=== PATIENT | male | born 1995 | race Caucasian/White ===

== ENCOUNTER 2018-09-19 23:20 | Emergency (ER) | payer OTHER ==
[2018-09-20 00:15] VITALS: BP 140/79; PULSE 85; TEMP 98.6; BMI 31.7
[2018-09-20] MEDS ORDERED: KETOROLAC TROMETHAMINE 60 MG/2 ML VIAL IM ONE (02:13)
--- NOTE | 2018-09-20 02:13 | PDOC ---
History of Present Illness - General Chief Complaint: Pain, Acute Stated Complaint: KNEE INJURY Time Seen by Provider: 09/20/18 02:11 History Source: Patient - History of Present Illness Initial Comments: 09/20/18 02:35 23 year old male c/o right knee pain " felt a pop " while playing basketball. at 4.00 pm, unable to weigth bear since injury. Past History - Past Medical History Allergies/Adverse Reactions: Allergies Allergy/AdvReac Type Severity Reaction Status Date / Time No Known Allergies Allergy Verified 09/20/18 00:15 Home Medications: Ambulatory Orders Ibuprofen 600 mg PO QID PRN #20 tablet 09/20/18 - Suicide/Smoking/Psychosocial Hx Smoking History: Never smoked Have you smoked in the past 12 months: No Information on smoking cessation initiated: No Hx Alcohol Use: No Drug/Substance Use Hx: No Review of Systems - Review of Systems Able to Perform ROS?: Yes Is the patient limited Pakistani proficient: No Constitutional: No: Symptoms Reported, See HPI, Chills, Diaphoresis, Fever, Loss of Appetite, Malaise, Night Sweats, Weakness, Weight Stable, Unintentional Wgt. Loss, Unexplained wgt Loss, Other Musculoskeletal: Yes: Other (right knee pain) *Physical Exam - Vital Signs Last Vital Signs Temp Pulse Resp BP Pulse Ox 98.6 F 85 18 140/79 98 09/19/18 23:20 09/19/18 23:20 09/19/18 23:20 09/19/18 23:20 09/19/18 23:20 - Physical Exam General Appearance: Yes: Appropriately Dressed Extremity: positive: Normal Capillary Refill, Other (right lateral knee pain. unable to weigth bear. able to leg raise) Integumentary: positive: Normal Color, Dry, Warm Neurologic: positive: Fully Oriented, Alert, Normal Mood/Affect ED Treatment Course - RADIOLOGY Radiology Studies Ordered: Category Date Time Status KNEE 2 POS-RIGHT [RAD] Stat Radiology 09/20/18 02:11 Ordered Progress Note - Progress Note Progress Note: A: knee pain P: xray: negative NSAIDs ortho follow up. *DC/Admit/Observation/Transfer Diagnosis at time of Disposition: Knee strain Qualifiers: Encounter type: initial encounter Laterality: right Qualified Code(s): S86.911A - Strain of unspecified muscle(s) and tendon(s) at lower leg level, right leg, initial encounter - Discharge Dispostion Disposition: HOME Condition at time of disposition: Fair - Prescriptions Prescriptions: Ibuprofen 600 mg PO QID PRN #20 tablet PRN Reason: Pain - Referrals Referrals: Keith Urbina [Primary Care Provider] - Ravi Cifuentes DO [Staff Physician] - Call tomorrow - Patient Instructions Printed Discharge Instructions: Knee Sprain Additional Instructions: keep in keep immobilizer use crutches with walking apply ice to the area you may take ibuprofen every 6 hours as needed for pain. follow up an orthopedic doctor as soon as possible.. - Post Discharge Activity Forms/Work/School Notes: Back to Work
[2018-09-20] MEDS ORDERED: KETOROLAC TROMETHAMINE 60 MG/2 ML VIAL ONE (02:15)
--- NOTE | 2018-09-20 02:16 | PDOC ---
*Physical Exam - Vital Signs Last Vital Signs Temp Pulse Resp BP Pulse Ox 98.6 F 85 18 140/79 98 09/19/18 23:20 09/19/18 23:20 09/19/18 23:20 09/19/18 23:20 09/19/18 23:20 Medical Decision Making - Medical Decision Making 09/20/18 02:15 Patient seen by the advanced practice provider under my direct supervision. Ancillary testing reviewed as necessary. I agree with plan as outlined by the advanced practice provider. *DC/Admit/Observation/Transfer Diagnosis at time of Disposition: Knee strain - Discharge Dispostion Condition at time of disposition: Fair - Referrals Referrals: Keith Urbina [Primary Care Provider] - - Patient Instructions - Post Discharge Activity
[2018-09-20] MEDS ORDERED: IBUPROFEN 600 MG TABLET (FP) PO ONE (03:55)
== END 2018-09-20 05:18 | disposition home or self-care (01) ==
LOC: JER 23:20
PROC: 3E0233Z Introduction of Anti-inflammatory into Muscle, Percutaneous Approach (ICD-10-PCS; principal; 2018-09-19)
PROC: 2W3QXYZ Immobilization of Right Lower Leg using Other Device (ICD-10-PCS; 2018-09-19)
DX: S86.811A Strain of other muscle(s) and tendon(s) at lower leg level, right leg, initial encounter (principal); X50.1XXA Overexertion from prolonged static or awkward postures, initial encounter; Y93.67 Activity, basketball; Y92.310 Basketball court as the place of occurrence of the external cause; Y99.8 Other external cause status
CPT/HCPCS: 29530; 73560-TC-RT-FY; 96372; 99281-25

== ENCOUNTER 2019-12-25 16:24 | Emergency (ER) | payer OTHER ==
--- NOTE | 2019-12-25 16:29 | PDOC ---
Rapid Medical Evaluation Time Seen by Provider: 12/25/19 16:27 Medical Evaluation: Allergies Allergy/AdvReac Type Severity Reaction Status Date / Time No Known Allergies Allergy Verified 12/25/19 16:26 12/25/19 16:27 I have performed a brief in-person evaluation of this patient. The patient presents with a chief complaint of: SOB w/ exertion and at rest x 2 months on and off and usually resolves after 30 minutes but lasted for 4 hrs last night. Also w/ vague CP. No med eval for sxs in the past. No known pmhx Pertinent physical exam findings:stable, NAD I have ordered the following:EKG The patient will proceed to the ED for further evaluation. Discharge Disposition - Diagnosis SOB (shortness of breath) - Referrals - Patient Instructions - Post Discharge Activity
[2019-12-25 16:43] VITALS: BMI 33.5
--- NOTE | 2019-12-25 17:35 | PDOC ---
History of Present Illness - General Chief Complaint: Chest Pain Stated Complaint: CHEST TIGHTNESS Time Seen by Provider: 12/25/19 16:27 History Source: Patient Exam Limitations: No Limitations - History of Present Illness Initial Comments: 12/25/19 17:33 HISTORY OF PRESENT ILLNESS: 24-year-old male denies medical history presents emergency department for evaluation of intermittent left-sided chest pain with shortness of breath lasting over the past 3 weeks. Reports the pain comes every night which he describes as a squeezing sensation rated 8/10. Patient denies pain at present. He reports the pain is associated with some shortness of breath and noticed it first while playing basketball but now has presented while at rest. Patient is tried to schedule appoint with his primary doctor but is been unsuccessful. Patient denies recent travel, swelling in the legs, drug or alcohol use. No recent travel or sick contacts. PAST MEDICAL HISTORY: Denies past medical history SURGICAL HISTORY: Denies ALLERGIES: No known drug allergies REVIEW OF SYSTEMS General/Constitutional: Denies fever or chills. Denies weakness, weight change. HEENT: Denies change in vision. Denies ear pain or discharge. Denies sore throat. Cardiovascular: See HPI Respiratory: Denies cough, wheezing, or hemoptysis. Gastrointestinal: Denies nausea, vomiting, diarrhea or constipation. Denies r ectal bleeding. Genitourinary: Denies dysuria, frequency, or change in urination. Musculoskeletal: Denies joint or muscle swelling or pain. Denies neck or back pain. Skin and breasts: Denies rash or easy bruising. Neurologic: Denies headache, vertigo, loss of consciousness, or loss of sensation. Psychiatric: Denies depression or anxiety. Endocrine: Denies increased thirst. Denies abnormal weight change. Hematologic/Lymphatic: Denies anemia, easy bleeding, or history of blood clots. Allergic/Immunologic: Denies hives or skin allergy. Denies latex allergy. PHYSICAL EXAM General Appearance: Well-appearing, appropriately dressed. No apparent distress, no intoxication. HEENT: EOMI, PERRLA, normal ENT inspection, normal voice, TMs normal, pharynx normal. No conjunctival pallor. No photophobia, scleral icterus. Neck: Supple. Trachea midline. No tenderness, rigidity, carotid bruit, stridor, lymphadenopathy, or thyromegaly. Respiratory/Chest: Lungs CTAB. No shortness of breath, chest tenderness, respiratory distress, accessory muscle use. No crackles, rales, rhonchi, stridor, wheezing, dullness Cardiovascular: RRR. S1, S2. No JVD, murmur, bradycardia, tachycardia. Vascular Pulses: Dorsalis-Pedis (R): 2+, Dorsalis-Pedis (L): 2+ Gastrointestinal/Abdominal: Normal bowel sounds. Abdomen soft, non-distended. No tenderness or rebound tenderness. No organomegaly, pulsatile mass, guarding, hernia, hepatomegaly, splenomegaly. Lymphatic: No adenopathy, tenderness. Musculoskeletal/Extremities: Normal inspection. FROM of all extremities, normal capillary refill. Pelvis Stable. No CVA tenderness. No tenderness to extremities, pedal edema, swelling, erythema or deformity. Integumentary: Appropriate color, dry, warm. No cyanosis, erythema, jaundice or rash Neurologic: analytical research chemist II-XII intact. Fully oriented, alert. Appropriate mood/affect. Motor strength 5/5. No appreciable EOM palsy, facial droop or sensory deficit. Past History - Medical History Allergies/Adverse Reactions: Allergies Allergy/AdvReac Type Severity Reaction Status Date / Time No Known Allergies Allergy Verified 12/25/19 16:26 Home Medications: Ambulatory Orders NK [No Known Home Medication] 12/25/19 COPD: No - Immunization History Immunization Up to Date: Yes - Psycho-Social/Smoking History Smoking History: Never smoked Have you smoked in the past 12 months: No - Substance Abuse Hx (Audit-C & DAST Scrn) How often the patient has a drink containing alcohol: Never Score: In Men: 4 or > Positive; In Women: 3 or > Positive: 0 Screen Result (Pos requires Nsg. Audit-10AR): Negative In the last yr the pt used illegal drug/Rx for NonMed reason: No Score: Yes response is considered Positive: 0 Screen Result (Positive result requires Nsg. DAST-10): Negative *Physical Exam - Vital Signs Last Vital Signs Temp Pulse Resp BP Pulse Ox 97.9 F 73 20 141/100 98 12/25/19 16:26 12/25/19 16:26 12/25/19 16:26 12/25/19 16:26 12/25/19 16:54 Heart Score/ECG Review - History History: Slightly suspicious - Electrocardiogram EKG: Normal - Age Age: </= 45 - Risk Factors Based on the list above the patient has:: No risk factors known - Troponin Troponin: </= normal limit - Score Heart Score - Total: 0 ED Treatment Course - LABORATORY CBC & Chemistry Diagram: 12/25/19 18:00 12/25/19 18:00 - ADDITIONAL ORDERS Additional order review: Laboratory Results 12/25/19 12/25/19 12/25/19 18:00 18:00 18:00 Sodium 141 Potassium 3.9 Chloride 104 Carbon Dioxide 30 Anion Gap 7 L BUN 15.0 Creatinine 1.0 Est GFR (CKD-EPI)AfAm 123.27 Est GFR (CKD-EPI)NonAf 106.36 Random Glucose 82 Calcium 9.6 Total Bilirubin 0.6 AST 16 ALT 48 Alkaline Phosphatase 67 Creatine Kinase 100 Troponin I < 0.02 Total Protein 7.8 Albumin 4.6 Urine Color Yellow Urine Appearance Turbid Urine pH >= 9.0 H Ur Specific [place] 1.020 Urine Protein Negative Urine Glucose (UA) Negative Urine Ketones Negative Urine Blood Negative Urine Nitrite Negative Urine Bilirubin Negative Urine Urobilinogen 1.0 Ur Leukocyte Esterase Negative Opiates Screen Negative Methadone Screen Negative Barbiturate Screen Negative Phencyclidine Screen Negative Ur Amphetamines Screen Negative MDMA (Ecstasy) Screen Negative Benzodiazepines Screen Negative Cocaine Screen Negative U Marijuana (THC) Screen Negative 12/25/19 18:00 RBC 5.27 MCV 84.4 MCHC 33.6 RDW 12.9 MPV 8.6 Neutrophils % 53.9 Lymphocytes % 37.8 Monocytes % 7.0 Eosinophils % 0.8 Basophils % 0.5 - RADIOLOGY Radiology Studies Ordered: Category Date Time Status CXR [CHEST PA & LAT] [RAD] Stat Radiology 12/25/19 17:36 Completed Medical Decision Making - Medical Decision Making 12/25/19 17:34 A/P: 24-year-old male with intermittent left-sided chest pain over 3 weeks with accompanying shortness of breath Physical exam is unremarkable As patient has been unsuccessful securing appoint with his primary physician I will do a cardiac work-up with one negative troponin being reassuring that this is not cardiac in nature. Patient is in agreement that if initial testing of cardiac enzymes is unremarkable we will follow-up with his primary doctor. 12/25/19 18:11 EKG sinus rhythm with rate of 76. Normal intervals present. Normal axis. No ischemic changes present. 12/25/19 18:13 Chest x-ray as read by Dr. Bone: The cardiac silhouette is within normal limits in size. The lungs are clear. Mediastinum and visualized ostia structures appear grossly intact. 12/25/19 19:01 Laboratory Tests 12/25/19 12/25/19 12/25/19 18:00 18:00 18:00 WBC 6.6 RBC 5.27 Hgb 15.0 Hct 44.5 MCV 84.4 MCH 28.4 MCHC 33.6 RDW 12.9 Plt Count 272 MPV 8.6 Absolute Neuts (auto) 3.6 Neutrophils % 53.9 Lymphocytes % 37.8 Monocytes % 7.0 Eosinophils % 0.8 Basophils % 0.5 Nucleated RBC % 0 Sodium 141 Potassium 3.9 Chloride 104 Carbon Dioxide 30 Anion Gap 7 L BUN 15.0 Creatinine 1.0 Est GFR (CKD-EPI)AfAm 123.27 Est GFR (CKD-EPI)NonAf 106.36 Random Glucose 82 Calcium 9.6 Total Bilirubin 0.6 AST 16 ALT 48 Alkaline Phosphatase 67 Creatine Kinase 100 Troponin I < 0.02 Total Protein 7.8 Albumin 4.6 Urine Color Yellow Urine Appearance Turbid Urine pH >= 9.0 H Ur Specific [place] 1.020 Urine Protein Negative Urine Glucose (UA) Negative Urine Ketones Negative Urine Blood Negative Urine Nitrite Negative Urine Bilirubin Negative Urine Urobilinogen 1.0 Ur Leukocyte Esterase Negative Opiates Screen Methadone Screen Barbiturate Screen Phencyclidine Screen Ur Amphetamines Screen MDMA (Ecstasy) Screen Benzodiazepines Screen Cocaine Screen U Marijuana (THC) Screen 12/25/19 18:00 WBC RBC Hgb Hct MCV MCH MCHC RDW Plt Count MPV Absolute Neuts (auto) Neutrophils % Lymphocytes % Monocytes % Eosinophils % Basophils % Nucleated RBC % Sodium Potassium Chloride Carbon Dioxide Anion Gap BUN Creatinine Est GFR (CKD-EPI)AfAm Est GFR (CKD-EPI)NonAf Random Glucose Calcium Total Bilirubin AST ALT Alkaline Phosphatase Creatine Kinase Troponin I Total Protein Albumin Urine Color Urine Appearance Urine pH Ur Specific [place] Urine Protein Urine Glucose (UA) Urine Ketones Urine Blood Urine Nitrite Urine Bilirubin Urine Urobilinogen Ur Leukocyte Esterase Opiates Screen Negative Methadone Screen Negative Barbiturate Screen Negative Phencyclidine Screen Negative Ur Amphetamines Screen Negative MDMA (Ecstasy) Screen Negative Benzodiazepines Screen Negative Cocaine Screen Negative U Marijuana (THC) Screen Negative As patient has a normal EKG, normal chest x-ray and normal initial troponin I feel it is safe to discharge home to follow-up with his primary doctor when available. I discussed the physical exam findings, ancillary test results and final diagnoses with the patient. I answered all of the patient's questions. The patient was satisfied with the care received and felt comfortable with the discharge plan and treatment plan. The patient will call their primary care physician within 24 hours to arrange follow-up and will return to the Emergency Department with any new, persistent or worsening symptoms. Portions of this note have been documented using voice recognition software. As a result, errors may occur in the power brake operator process. Effort has been made to correct all grammatical and power brake operator error, but some may have been missed which may produce sporadic inaccurate power brake operator or nonsensical phrases. Discharge - Discharge Information Problems reviewed: Yes Clinical Impression/Diagnosis: Chest pain Qualifiers: Chest pain type: unspecified Qualified Code(s): R07.9 - Chest pain, unspecified Condition: Stable Disposition: HOME - Admission No - Follow up/Referral - Patient Discharge Instructions Patient Printed Discharge Instructions: DI for Chest Pain Additional Instructions: Eat a well-balanced diet. Keep well-hydrated. Your EKG, chest x-ray and initial cardiac laboratory testing are all normal. Your symptoms are likely not due to cardiac or pulmonary concerns. Return to emergency department for any new or worsening symptoms. Thank you very much for choosing us provide your emergent healthcare needs. - Post Discharge Activity
[2019-12-25 18:32] LABS: BASO % 0.5 % (0-2.0); EOS % 0.8 % (0-4.5); HEMATOCRIT 44.5 % (35.4-49); LYMPH % 37.8 % (8-40); MCH 28.4 pg (25.7-33.7); MCHC 33.6 g/dl (32.0-35.9); MEAN CELL VOLUME 84.4 fl (80-96); MEAN PLT VOLUME 8.6 fl (7.5-11.1); NEUT % 53.9 % (42.8-82.8); PLATELET COUNT 272 K/MM3 (134-434); RBC 5.27 M/mm3 (4.00-5.60); RDW 12.9 % (11.9-15.9); WHITE BLOOD COUNT 6.6 K/mm3 (4.0-10.0)
[2019-12-25 18:34] LABS: PH,URINE >= 9.0 (5.0-8.0); URINE APPEARANCE TURBID; URINE BILIRUBIN NEGATIVE (NEGATIVE); URINE COLOR YELLOW; URINE GLUCOSE (UA) NEGATIVE (NEGATIVE); URINE KETONE NEGATIVE (NEGATIVE); URINE LEUK ESTERASE NEGATIVE (NEGATIVE); URINE NITRITE NEGATIVE (NEGATIVE); URINE PROTEIN NEGATIVE (NEGATIVE)
[2019-12-25 18:46] LABS: COCAINE, UR NEGATIVE ng/ml (CUTOFF=300); OPIATES, URI NEGATIVE ng/ml (CUTOFF=300); PHENCYCLIDINE,URINE NEGATIVE ng/ml (CUTOFF=25); URINE BARBITURATES NEGATIVE ng/ml (CUTOFF=200)
[2019-12-25 18:50] LABS: ALBUMIN 4.6 g/dl (3.4-5.0); ALK PHOS 67 U/L (45-117); ANION GAP 7 MMOL/L (8-16); BILIRUBIN,TOTAL 0.6 mg/dL (0.2-1); CALCIUM 9.6 mg/dL (8.5-10.1); CHLORIDE 104 mmol/L (98-107); CO2 30 mmol/L (21-32); GLUCOSE,RANDOM 82 mg/dL (74-106); POTASSIUM 3.9 mmol/L (3.5-5.1); SGOT/AST 16 U/L (15-37); SGPT/ALT 48 U/L (13-61); SODIUM 141 mmol/L (136-145); TOT PROT 7.8 g/dl (6.4-8.2)
[2019-12-25 18:57] LABS: METHADONE, UR NEGATIVE ng/ml (CUTOFF=300); URINE AMPHETAMINES NEGATIVE ng/ml (CUTOFF=500); URINE BENZODIAZEPINES NEGATIVE ng/ml (CUTOFF=200)
[2019-12-25 19:11] VITALS: BP 130/74; PULSE 79; TEMP 98.4
--- NOTE | 2019-12-26 09:07 | EKG ---
Test Reason : Blood Pressure : / mmHG Vent. Rate : 076 BPM Atrial Rate : 076 BPM P-R Int : 154 ms QRS Dur : 096 ms QT Int : 378 ms P-R-T Axes : 054 038 025 degrees QTc Int : 425 ms NORMAL SINUS RHYTHM NORMAL ECG NO PREVIOUS ECGS AVAILABLE Confirmed by Han Alves ([id number]) on 12/26/2019 9:07:27 AM Referred By: Confirmed By:Han Alves
== END 2019-12-25 19:11 | disposition home or self-care (01) ==
LOC: JER 16:24
DX: R07.9 Chest pain, unspecified (principal)
CPT/HCPCS: 36415; 71046-TC-FY; 80053; 80307; 81003; 82550; 84484; 85025; 93005; 93010; 99284-25

== ENCOUNTER 2020-01-20 23:47 | Emergency (ER) | payer OTHER ==
[2020-01-21 00:03] VITALS: BP 137/79; PULSE 76; TEMP 98.3; BMI 33.5
--- NOTE | 2020-01-21 00:12 | PDOC ---
History of Present Illness - General Chief Complaint: Shortness of Breath Stated Complaint: SOB Time Seen by Provider: 01/21/20 00:08 - History of Present Illness Initial Comments: 01/21/20 00:48 HPI 24y/o M no significant medical hx presenting after 15-20 minute episode of SOB a few hours ago. Pt has had this ongoing issue for the last 3 months and has been worked up in this ED 01/13 with no significant findings. Has cardiology referral for Echo which he hast not yet done. Patient denies WINTERS, vision change, palpitations, cough, wheezing, orthopena, PND, leg swelling/pain, N/V, F,C, CP, SOB, urinary complaints, hematuria, BPR, abdominal pain, diarrhea, constipation, lightheadedness, weakness, sensory changes. PMHx: as noted above ROS: as noted SHx: Denies Etoh, IVDA, tobacco use Allergies: NKDA ROS: GENERAL/CONSTITUTIONAL: No fever or chills. No weakness. HEAD, EYES, EARS, NOSE AND THROAT: No change in vision. No ear pain or discharge. No sore throat. CARDIOVASCULAR: No chest pain or shortness of breath RESPIRATORY: No cough, wheezing, or hemoptysis. GASTROINTESTINAL: No nausea, vomiting, diarrhea or constipation. GENITOURINARY: No dysuria, frequency, or change in urination. MUSCULOSKELETAL: No joint or muscle swelling or pain. No neck or back pain. SKIN: No rash NEUROLOGIC: No headache, vertigo, loss of consciousness, or change in strength/sensation. ENDOCRINE: No increased thirst. No abnormal weight change HEMATOLOGIC/LYMPHATIC: No anemia, easy bleeding, or history of blood clots. ALLERGIC/IMMUNOLOGIC: No hives or skin allergy. PE: GENERAL: Awake, alert, and fully oriented, in no acute distress HEAD: No signs of trauma, normocephalic, atraumatic EYES: PERRLA, EOMI, sclera anicteric, conjunctiva clear ENT: Auricles normal inspection, hearing grossly normal, nares patent, oropharynx clear without exudates. Moist mucosa NECK: Normal ROM, supple, no lymphadenopathy, JVD, or masses LUNGS: No distress, speaks full sentences, clear to auscultation bilaterally HEART: Regular rate and rhythm, normal S1 and S2, no murmurs, rubs or gallops, peripheral pulses normal and equal bilaterally. ABDOMEN: Soft, nontender, normoactive bowel sounds. No guarding, no rebound. No masses EXTREMITIES : Normal inspection, Normal range of motion, no edema. No clubbing or cyanosis NEUROLOGICAL: Cranial nerves II through XII grossly intact. Normal speech, normal gait, no focal sensorimotor deficits SKIN: Warm, Dry, normal turgor, no rashes or lesions noted MDM DDx including but not limited to: acs, p.e, arrhythmia, Workup: cbc, cmp, d-dimer, troponin, ekg, cxr. TX: Scores - HEART score 0 -PERC 0 - EKG: normal sinus rhythm, 68 bpm, DE 162ms, QRS 96ms, QTc 425ms ED course labs negative d-dimer <215 pt in no acute distress in ED, reports resolution of symptoms d/c with importance of following up with his director ambulatory stressed. Past History - Medical History Allergies/Adverse Reactions: Allergies Allergy/AdvReac Type Severity Reaction Status Date / Time No Known Allergies Allergy Verified 01/21/20 00:03 Home Medications: Ambulatory Orders NK [No Known Home Medication] 12/25/19 COPD: No - Immunization History Immunization Up to Date: Yes - Psycho-Social/Smoking History Smoking History: Never smoked Have you smoked in the past 12 months: No Information on smoking cessation initiated: No - Substance Abuse Hx (Audit-C & DAST Scrn) How often the patient has a drink containing alcohol: Never Score: In Men: 4 or > Positive; In Women: 3 or > Positive: 0 Screen Result (Pos requires Nsg. Audit-10AR): Negative In the last yr the pt used illegal drug/Rx for NonMed reason: No Score: Yes response is considered Positive: 0 Screen Result (Positive result requires Nsg. DAST-10): Negative *Physical Exam - Vital Signs Last Vital Signs Temp Pulse Resp BP Pulse Ox 98.3 F 76 20 137/79 99 01/20/20 23:58 01/20/20 23:58 01/20/20 23:58 01/20/20 23:58 01/20/20 23:58 ED Treatment Course - LABORATORY CBC & Chemistry Diagram: 01/21/20 01:25 01/21/20 01:25 Discharge - Discharge Information Problems reviewed: Yes Clinical Impression/Diagnosis: Shortness of breath at rest Condition: Stable Disposition: HOME - Follow up/Referral Referrals: Malendowicz,Levy L, MD [Staff Physician] - ON STAFF,NOT [Primary Care Provider] - - Patient Discharge Instructions Patient Printed Discharge Instructions: DI for Atypical Chest Pain, DI for Shortness of Breath Additional Instructions: Discussed results and outcome of testing with the patient. follow up with your primary care doctor within the next 24-48 hours and return to the Emergency Department for worsening symptoms or any other concerns. make an appointment to see your director ambulatory for the required testing to be done. if you do not have one you can follow up with dr dobson. see referral information for phone number. Your care will not be complete until you do so. - Post Discharge Activity
--- NOTE | 2020-01-21 00:52 | PDOC ---
Documentation entered by Sarah Ryan SCRIBE, acting as scribe for Reema Velasco MD. Reema Velasco MD: This documentation has been prepared by the [employer] [place], SCRIBE, under my direction and personally reviewed by me in its entirety. I confirm that the documentation accurately reflects all work, treatment, procedures, and medical decision making performed by me. Attending Attestation - Resident Resident Name: Samira Reyes - ED Attending Attestation I have performed the following: I have examined & evaluated the patient, The case was reviewed & discussed with the resident, I agree w/resident's findings & plan, Exceptions are as noted - HPI HPI: 01/21/20 00:39 Patient is a 24 year old male with no significant past medical history who presents to the ED with several weeks of chest tightness and shortness of breath. As per patient, this intermittent chest tightness has a sudden onset during the episodes, where he also endorses lightheadedness and shortness of breath. He notes these episodes typically occur after he works long hours with a mask on. Patient was seen in the ED for a similar episode on 12/24. Denies fever, chills, headache, nausea, vomiting, diarrhea, or urinary changes. Allergies: NKDA PCP: Not on Staff - Physicial Exam PE: 01/21/20 00:47 wnwd 24 yo male in no acute distress head ncat neck supple lungs cta b/l cvs [id number] abdomen no guarding , no rebound extremities no edema skin warm and dry neuro axox3, ambulatory - Medical Decision Making 01/20 ekg nsr @ 68 bpm 01/21/20 01:39 trop, d dimer pending Discharge - Discharge Information Problems reviewed: Yes Clinical Impression/Diagnosis: Shortness of breath at rest Condition: Stable Disposition: HOME - Follow up/Referral Referrals: Levy Fontana MD [Staff Physician] - ON STAFF,NOT [Primary Care Provider] - - Patient Discharge Instructions Patient Printed Discharge Instructions: DI for Atypical Chest Pain, DI for Shortness of Breath Additional Instructions: Discussed results and outcome of testing with the patient. follow up with your primary care doctor within the next 24-48 hours and return to the Emergency Department for worsening symptoms or any other concerns. make an appointment to see your client renewal specialist for the required testing to be done. if you do not have one you can follow up with dr fontana. see referral information for phone number. Your care will not be complete until you do so. - Post Discharge Activity
[2020-01-21 01:53] LABS: BASO % 0.4 % (0-2.0); EOS % 0.4 % (0-4.5); HEMATOCRIT 43.8 % (35.4-49); HEMOGLOBIN 14.9 GM/dL (11.7-16.9); LYMPH % 23.5 % (8-40); MCH 28.5 pg (25.7-33.7); MCHC 33.9 g/dl (32.0-35.9); MEAN CELL VOLUME 83.9 fl (80-96); MEAN PLT VOLUME 8.5 fl (7.5-11.1); MONO % 5.5 % (3.8-10.2); NEUT % 70.2 % (42.8-82.8); PLATELET COUNT 291 K/MM3 (134-434); RBC 5.22 M/mm3 (4.00-5.60); RDW 13.1 % (11.9-15.9); WHITE BLOOD COUNT 9.9 K/mm3 (4.0-10.0)
[2020-01-21 02:20] LABS: PROTHROMBIN TIME (PATIENT) 11.8 SEC (9.7-13.0)
[2020-01-21 02:26] LABS: ALBUMIN 4.6 g/dl (3.4-5.0); ALK PHOS 64 U/L (45-117); ANION GAP 7 MMOL/L (8-16); BILIRUBIN,TOTAL 0.4 mg/dL (0.2-1); CALCIUM 9.4 mg/dL (8.5-10.1); CHLORIDE 104 mmol/L (98-107); CO2 28 mmol/L (21-32); GLUCOSE,RANDOM 85 mg/dL (74-106); POTASSIUM 3.7 mmol/L (3.5-5.1); SGOT/AST 17 U/L (15-37); SGPT/ALT 32 U/L (13-61); SODIUM 139 mmol/L (136-145)
--- NOTE | 2020-01-21 11:16 | EKG ---
Test Reason : Blood Pressure : / mmHG Vent. Rate : 068 BPM Atrial Rate : 068 BPM P-R Int : 162 ms QRS Dur : 096 ms QT Int : 400 ms P-R-T Axes : 051 028 031 degrees QTc Int : 425 ms NORMAL SINUS RHYTHM WITH SINUS ARRHYTHMIA NORMAL ECG WHEN COMPARED WITH ECG OF 25-DEC-2019 16:37, NO SIGNIFICANT CHANGE WAS FOUND Confirmed by RON GRADY MD ([id number]) on 01/21/2020 11:15:56 AM Referred By: Confirmed By:RON GRADY MD
== END 2020-01-21 03:10 | disposition home or self-care (01) ==
LOC: JER 23:47
DX: R06.02 Shortness of breath (principal)
CPT/HCPCS: 36415; 71046-TC-FY; 80053; 84484; 85025; 85379; 85610; 93005; 93010; 99285-25

== ENCOUNTER 2020-07-06 01:03 | Emergency (ER) | payer OTHER ==
[2020-07-06 01:52] VITALS: BP 146/92; PULSE 77; TEMP 98.2; BMI 37.0
[2020-07-06] MEDS ORDERED: IBUPROFEN 600 MG TABLET (FP) PO ONE ×2 (02:23→02:35)
[2020-07-06] MEDS ORDERED: METHOCARBAMOL 500 MG TABLET PO ONE (02:23)
[2020-07-06] MEDS ORDERED: METHOCARBAMOL 500 MG TABLET ONE (02:35)
== END 2020-07-06 03:57 | disposition home or self-care (01) ==
LOC: JER 01:03
DX: R06.02 Shortness of breath (principal); R07.89 Other chest pain
CPT/HCPCS: 71046-TC-FY; 93005; 93010; 99284-25

== ENCOUNTER 2020-07-16 04:16 | Emergency (ER) | payer OTHER ==
[2020-07-16 04:33] VITALS: BP 133/81; PULSE 86; TEMP 98.1; BMI 36.3
== END 2020-07-16 05:20 | disposition home or self-care (01) ==
LOC: JER 04:16
DX: R20.2 Paresthesia of skin (principal)
CPT/HCPCS: 93005; 93010; 99283-25

== ENCOUNTER 2021-10-25 15:22 | Emergency (ER) | payer OTHER ==
[2021-10-25 15:26] VITALS: BP 141/67; PULSE 70; TEMP 97.8; BMI 34.0
[2021-10-25] MEDS ORDERED: SODIUM CHLORIDE 0.9% 500 ML INFUS.BAG IV ONE (16:19)
[2021-10-25 17:17] LABS: BASO % 0.8 % (0-2.0); EOS % 1.9 % (0-4.5); HEMATOCRIT 41.9 % (35.4-49); HEMOGLOBIN 14.1 GM/dL (11.7-16.9); LYMPH % 39.6 % (8-40); MCH 27.8 pg (25.7-33.7); MCHC 33.6 g/dl (32.0-35.9); MEAN CELL VOLUME 82.7 fl (80-96); MEAN PLT VOLUME 8.1 fl (7.5-11.1); MONO % 6.5 % (3.8-10.2); NEUT % 51.2 % (42.8-82.8); PLATELET COUNT 273 10^3/uL (134-434); RBC 5.06 M/mm3 (4.00-5.60); RDW 13.7 % (11.9-15.9); WHITE BLOOD COUNT 7.3 K/mm3 (4.0-10.0)
[2021-10-25 17:41] LABS: ALBUMIN 4.2 g/dl (3.4-5.0); CALCIUM 9.3 mg/dL (8.5-10.1)
[2021-10-25 17:42] LABS: BLOOD UREA NITROGEN 10.8 mg/dL (7-18)
[2021-10-25 17:44] LABS: CREATININE 0.9 mg/dL (0.55-1.3)
[2021-10-25 17:46] LABS: BILIRUBIN,TOTAL 0.5 mg/dL (0.2-1); TOT PROT 7.4 g/dl (6.4-8.2)
[2021-10-25 19:05] LABS: EPI CELLS 6 /uL (0-25.1); HYALINE CASTS 0 /uL (0-3.1); URINE APPEARANCE CLEAR; URINE BACTERIA 12 /uL (0-1359); URINE BILIRUBIN NEGATIVE (NEGATIVE); URINE COLOR YELLOW; URINE GLUCOSE (UA) NEGATIVE (NEGATIVE); URINE KETONE NEGATIVE (NEGATIVE); URINE LEUK ESTERASE TRACE (NEGATIVE); URINE NITRITE NEGATIVE (NEGATIVE); URINE PROTEIN NEGATIVE (NEGATIVE); URINE RBC 3 /uL (0-23.9); URINE UROBILINOGEN 0.2 mg/dL (0.2-1.0); URINE WBC 32 /uL (0-25.8)
== END 2021-10-25 19:59 | disposition home or self-care (01) ==
LOC: JER 15:22
DX: R10.11 Right upper quadrant pain (principal)
CPT/HCPCS: 36415; 71046-TC-FY; 74177-TC; 80053; 81003; 85025; 99285-25; Q9967

== ENCOUNTER 2021-10-27 20:34 | Emergency (ER) | payer OTHER ==
[2021-10-27 20:50] VITALS: TEMP 98; BMI 35.2
[2021-10-27] MEDS ORDERED: FAMOTIDINE 20 MG/50 ML IVPB 20 MG/50 ML MG IVPB ONE (22:26)
[2021-10-27] MEDS ORDERED: ACETAMINOPHEN 1000 MG/100 ML BAG IVPB ONE (22:26)
[2021-10-28] MEDS ORDERED: ACETAMINOPHEN INJECTION 100 ML IVPB ONE (00:35)
[2021-10-28] MEDS ORDERED: FAMOTIDINE 20 MG/50 ML IVPB 20 MG/50 ML MG IVPB ONE (00:35)
[2021-10-28 00:58] LABS: BASO % 0.5 % (0-2.0); EOS % 1.9 % (0-4.5); HEMATOCRIT 42.5 % (35.4-49); HEMOGLOBIN 13.9 GM/dL (11.7-16.9); LYMPH % 38.4 % (8-40); MCH 26.8 pg (25.7-33.7); MCHC 32.6 g/dl (32.0-35.9); MEAN CELL VOLUME 82.1 fl (80-96); MEAN PLT VOLUME 7.6 fl (7.5-11.1); MONO % 6.6 % (3.8-10.2); NEUT % 52.6 % (42.8-82.8); PLATELET COUNT 293 10^3/uL (134-434); RBC 5.18 M/mm3 (4.00-5.60); RDW 13.5 % (11.9-15.9); WHITE BLOOD COUNT 10.4 K/mm3 (4.0-10.0)
[2021-10-28 01:19] LABS: BLOOD UREA NITROGEN 15.6 mg/dL (7-18); CALCIUM 9.4 mg/dL (8.5-10.1)
[2021-10-28 01:20] LABS: ALBUMIN 4.4 g/dl (3.4-5.0)
[2021-10-28 01:22] LABS: CREATININE 0.9 mg/dL (0.55-1.3)
[2021-10-28 01:24] LABS: BILIRUBIN,TOTAL 0.5 mg/dL (0.2-1); TOT PROT 7.7 g/dl (6.4-8.2)
[2021-10-28 02:22] VITALS: BP 130/74; PULSE 97
== END 2021-10-28 02:49 | disposition home or self-care (01) ==
LOC: JER 20:34
PROC: 3E033GC Introduction of Other Therapeutic Substance into Peripheral Vein, Percutaneous Approach (ICD-10-PCS; principal; 2021-10-27)
DX: R07.89 Other chest pain (principal)
CPT/HCPCS: 36415; 71046-TC-FY; 80053; 83690; 84484; 85025; 93005; 93010; 96365; 96375; 99285-25

== ENCOUNTER 2022-03-22 05:30 | Emergency (ER) | payer OTHER ==
[2022-03-22 05:42] VITALS: BP 120/76; PULSE 79; RESP 18; TEMP 97.7; BMI 35.2
== END 2022-03-22 08:28 | disposition home or self-care (01) ==
LOC: JER 05:30
DX: R07.9 Chest pain, unspecified (principal)
CPT/HCPCS: 71046-TC-FY; 93005; 93010; 99284-25

== ENCOUNTER 2022-04-21 00:32 | Emergency (ER) | payer OTHER ==
[2022-04-21 00:49] VITALS: BP 141/80; PULSE 83; RESP 20; TEMP 98.9; BMI 37.8
[2022-04-21] MEDS ORDERED: CODEINE SO4 30 MG TABLET PO ONE (01:36)
[2022-04-21] MEDS ORDERED: guaiFENesin/D-METHORPHAN HB 10 ML UNIT-DOSE CUPS PO ONE (01:40)
[2022-04-21] MEDS ORDERED: guaiFENesin/D-METHORPHAN HB 10 ML UNIT-DOSE CUPS ONE (01:41)
== END 2022-04-21 01:43 | disposition home or self-care (01) ==
LOC: JER 00:32 → JERFT 00:32
DX: J02.9 Acute pharyngitis, unspecified (principal); R05.1 Acute cough; J06.9 Acute upper respiratory infection, unspecified
CPT/HCPCS: 71046-TC-FY; 99283-25

== ENCOUNTER 2022-04-22 00:17 | Emergency (ER) | payer OTHER ==
[2022-04-22 00:36] VITALS: BP 113/74; PULSE 93; RESP 20; TEMP 99.1; BMI 37.8
[2022-04-22 02:40] LABS: BASO % 0.4 % (0-2.0); EOS % 1.3 % (0-4.5); HEMATOCRIT 42.8 % (35.4-49); HEMOGLOBIN 14.2 GM/dL (11.7-16.9); LYMPH % 23.1 % (8-40); MCH 27.3 pg (25.7-33.7); MCHC 33.2 g/dl (32.0-35.9); MONO % 10.1 % (3.8-10.2); NEUT % 65.1 % (42.8-82.8); PLATELET COUNT 240 10^3/uL (134-434); RBC 5.22 M/mm3 (4.00-5.60); RDW 13.4 % (11.9-15.9); WHITE BLOOD COUNT 6.6 K/mm3 (4.0-10.0)
[2022-04-22 03:03] LABS: ALBUMIN 4.1 g/dl (3.4-5.0); BLOOD UREA NITROGEN 8.6 mg/dL (7-18)
[2022-04-22 03:08] LABS: BILIRUBIN,TOTAL 0.3 mg/dL (0.2-1); TOT PROT 7.5 g/dl (6.4-8.2)
== END 2022-04-22 06:06 | disposition home or self-care (01) ==
LOC: JER 00:17
DX: R07.9 Chest pain, unspecified (principal)
CPT/HCPCS: 0241U-QW; 36415; 71045-TC-FY; 71275-TC; 80053; 84484; 85025; 93005; 93010; 99285-25

== ENCOUNTER 2022-07-06 01:20 | Emergency (ER) | payer OTHER ==
[2022-07-06 01:32] VITALS: RESP 18
[2022-07-06 01:39] VITALS: BP 133/84; PULSE 73; TEMP 97.9; BMI 36.0
== END 2022-07-06 03:07 | disposition home or self-care (01) ==
LOC: JER 01:20
DX: R07.89 Other chest pain (principal)
CPT/HCPCS: 82962; 93005; 93010; 99281-25

== ENCOUNTER 2024-12-21 09:43 | Emergency (ER) | payer BC, OTHER ==
[2024-12-21 09:54] VITALS: BP 143/89; PULSE 72; RESP 18; TEMP 98.9; BMI 45.3
== END 2024-12-21 13:00 | disposition home or self-care (01) ==
LOC: JER 09:43
DX: M79.602 Pain in left arm (principal); M79.604 Pain in right leg; M79.605 Pain in left leg; M54.50 Low back pain, unspecified
CPT/HCPCS: 93970-TC; 93971; 99284-25